=== PATIENT | male | born 1985 | race Caucasian/White ===

== ENCOUNTER 2020-02-28 03:29 | Emergency (ER) | payer SELFPAY ==
[2020-02-28 03:36] VITALS: BP 129/82; PULSE 100; RESP 18; TEMP 36.5; O2SAT 100
== END 2020-02-28 05:34 | disposition left against medical advice (07) ==
PROVIDERS: Emergency Provider Emergency Medicine
DX: H57.12 Ocular pain, left eye (principal)
CPT/HCPCS: 99199

== ENCOUNTER 2021-10-25 03:41 | Emergency (ER) | payer SELFPAY ==
[2021-10-25 03:44] VITALS: PULSE 103; RESP 18; TEMP 36.4; O2SAT 99
--- NOTE | 2021-10-25 03:55 | ECG_ITS ---
Measurements Intervals [place] Rate: 94 P: 80 NM: 129 QRS: 94 QRSD: 89 T: 54 QT: 342 QTc: 430 Interpretive Statements SINUS RHYTHM RIGHT AXIS DEVIATION POSSIBLE LEFT ATRIAL ENLARGEMENT INCOMPLETE RIGHT BUNDLE BRANCH BLOCK BASELINE ARTIFACT- I, II, III, AVR, AVL, V1-V2 BORDERLINE ECG Electronically Signed On 10-25-2021 6:11:32 PERINATAL NURSE by Roberto Zaidi D.O.
--- NOTE | 2021-10-25 04:06 | ED.PSYCH ---
HPI - Psych General Chief Complaint: Psychiatric Symptoms <Feliberto Quijano MD - Last Filed: 10/25/21 07:08> Stated Complaint: SI <Feliberto Quijano MD - Last Filed: 10/25/21 07:08> Time Seen by Provider: 10/25/21 03:50 <Feliberto Quijano MD - Last Filed: 10/25/21 07:08> Source: patient <Feliberto Quijano MD - Last Filed: 10/25/21 07:08> History of Present Illness HPI Narrative: Patient resents with suicidal ideation. Patient reports he been feeling depressed since over the weekend he started to plan to kill himself today he was talking to his friend told he is getting go outside and kill himself. He had a knife with him a rope that maybe he would stab himself or hang himself from a tree. His friend brought him to the ER instead. Patient reports when he was a kid he tried to treat gasoline to kill himself but he did not because he was angry at his parents. He denies any diagnosis of depression anxiety denies any additional attempts at self-harm denies any hospitalizations for psych illness. Patient does report he used meth yesterday. <Feliberto Quijano MD - Last Filed: 10/25/21 07:08> Related Data Home Medications: Home Medications Medication Instructions Recorded Confirmed No Home Medications 02/28/20 02/28/20 <Feliberto Quijano MD - Last Filed: 10/25/21 07:08> Allergies/Adverse Reactions: Allergies Allergy/AdvReac Type Severity Reaction Status Date / Time No Known Allergies Allergy Unverified 02/28/20 03:35 <Feliberto Quijano MD - Last Filed: 10/25/21 07:08> Review of Systems Review of Systems: CONSTITUTIONAL: Denies fever, chills, or sweats. EYES: Denies visual changes, redness, or discharge. ENT: Denies rhinorrhea, congestion, sore throat, or otalgia. CARDIOVASCULAR: Denies chest pain, palpitations, or edema. RESPIRATORY: Denies cough or dyspnea. GASTROINTESTINAL: Denies abdominal pain, nausea, vomiting, or diarrhea. GENITOURINARY: Denies dysuria or hematuria. SKIN: Denies rash or itching. MUSCULOSKELETAL: Denies back pain, joint pain, or myalgia. NEUROLOGIC: Denies headache, numbness, dizziness, or weakness. PSYCHIATRIC: Denies anxiety or depression. <Feliberto Quijano MD - Last Filed: 10/25/21 07:08> All systems reviewed & are unremarkable except as noted in HPI and below <Feliberto Quijano MD - Last Filed: 10/25/21 07:08> PMFSH Past Medical History Medical History: Medical History Patient denies significant medical history <Feliberto Quijano MD - Last Filed: 10/25/21 07:08> Social History Social History: Social History Substance use type: marijuana and methamphetamine Gender identity (if verbalized by the patient): Male <Feliberto Quijano MD - Last Filed: 10/25/21 07:08> Exam Narrative: GENERAL: Well-appearing, well-nourished, and in no acute distress. HEAD: Normocephalic, atraumatic. EYES: PERRLA and EOMI. ENT: Nares clear, no rhinorrhea or epistaxis. Mucous membranes moist. NECK: Supple. No masses. No JVD EXTREMITIES: Normal range of motion. No edema. SKIN: Warm, dry, no rash. NEURO: No focal deficits. Alert and oriented x3. PSYCH: Normal mood and affect. <Feliberto Quijano MD - Last Filed: 10/25/21 07:08> Course Course Emergency Course: Accepted to [facility] by Dr. Barnhart. Pt stable. <Moise Morris MD - Last Filed: 10/25/21 13:07> Reevaluation(s) Reevaluation #1: Patient's labs returned and he is medically stable and appropriate for crisis evaluation <Feliberto Quijano MD - Last Filed: 10/25/21 07:08> Date: 10/25/21 <Feliberto Quijano MD - Last Filed: 10/25/21 07:08> Time: 05:04 <Feliberto Quijano MD - Last Filed: 10/25/21 07:08> Consultations Consultation #1: Patient's been evaluated by crisis and is a voluntary admission. Covid swab obtained for placement crisis wi
[2021-10-25 04:13] LABS: Basophils Absolute Auto 0.1 K/mm3 (0.0-0.1); Basophils Percent Auto 1.4 % (0.2-1.2); Eosinophils Absolute Auto 0.1 K/mm3 (0-0.3); Eosinophils Percent Auto 1.5 % (0-4.4); Hematocrit 43.5 % (42.0-52.0); Hemoglobin 14.7 g/dL (14.0-18.0); Immature Granulocyte Absolute 0.02 K/mm3 (0.00-0.031); Immature Granulocyte Percent A 0.3 % (0-0.5); Lymphocytes Absolute Auto 1.26 K/mm3 (0.9-3.2); Lymphocytes Percent Auto 21.4 % (18.3-44.2); Mean Corpuscular HGB Conc 33.8 g/dl (32-36); Mean Corpuscular Hemoglobin 30.9 pg (26-34); Mean Corpuscular Volume 91.4 fl (80-100); Mean Platelet Volume 10.1 fl (7.4-10.4); Monocytes Absolute Auto 0.6 K/mm3 (0.1-0.6); Monocytes Percent Auto 10.4 % (2.6-8.5); Neutrophils Absolute Auto 3.8 K/mm3 (1.3-6.7); Platelet Count Result 319 k/mm3 (150-375); Red Blood Count 4.76 M/mm3 (4.6-6.20); Red Cell Distribution Width 13.1 % (11.5-14.5); White Blood Count 5.9 K/mm3 (4.5-10.0)
[2021-10-25 04:25] LABS: Alanine Aminotransferase 24 U/L (4-50); Albumin Level 5.1 g/dL (3.5-5.1); Alkaline Phosphatase 78 U/L (38-126); Anion Gap 12 mmol/L (8-16); Aspartate Amino Transferase 35 U/L (17-59); Bilirubin,Total 0.9 mg/dL (0.2-1.3); Blood Urea Nitrogen 24 mg/dL (9-20); Calcium 9.4 mg/dL (8.4-10.2); Carbon Dioxide 23 mmol/L (22-30); Chloride 103 mmol/L (98-107); Estimated CRCL calculation 86 ml/min; Estimated Glomerular Filt Rate > 60; Glucose 127 mg/dL (65-110); Potassium 3.4 mmol/L (3.4-5.0); Sodium 138 mmol/L (137-145)
[2021-10-25 04:26] LABS: Acetaminophen < 10 ug/mL (10-30); Ethanol < 10 mg/dL (<10); Salicylate < 1.0 mg/dL (2-20)
[2021-10-25 04:28] VITALS: BP 143/97
[2021-10-25 04:46] LABS: Add Urine Microscopic? YES; Appearance Urine Clear (Clear); Bacteria Urine Trace /hpf; Bilirubin Urine Negative (Negative); Blood Urine Negative (Negative); Color Urine Amber (Yellow); Glucose Urine UA Negative (Negative); Ketones Urine 1+ mg/dL (Negative); Leukocyte Esterase Ur Negative LEU/UL (Negative); Mucus Urine Heavy /lpf; Nitrate Urine Negative (Negative); Protein Urine 2+ mg/dL (Negative); RBC Urine 0-2 /hpf (0-2); Squamous Epithelial Cell Urine Rare /hpf (Few); WBC Urine 0-3 /hpf
[2021-10-25 04:57] LABS: Barbiturate Screen Urine Negative (Negative); Benzodiazepines Screen Urine Negative (Negative)
[2021-10-25 04:58] LABS: Specific Grav Ur 1.032 (1.001-1.035)
[2021-10-25 04:59] LABS: Cannabinoid Screen Urine Positive (Negative); Cocaine Screen Urine Negative (Negative); Methadone Screen Urine Negative (Negative); Opiate Screen Urine Negative (Negative); Phencyclidine Screen Urine Negative (Negative)
[2021-10-25 05:37] LABS: Amphetamine Screen Urine Positive (Negative)
[2021-10-25] MEDS: hydrOXYzine HCL 25 MG TABLET PO (06:49)
[2021-10-25 06:54] LABS: EDCOVIDSCREEN Negative (Negative)
[2021-10-25] MEDS: LORazepam (*CRX) 0.5 MG TABLET PO (09:02)
--- NOTE | 2021-10-25 11:11 | PC.NURSE ---
[facility] called asking for Ramon HOLLIS to fax pt files to [facility].. File was faxed at [phone]
--- NOTE | 2021-10-25 11:52 | PC.NURSE ---
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 Files were faxed at [phone]. Pt face sheet was also faxed to [facility]
[2021-10-25 13:10] VITALS: BP 135/62; PULSE 98; RESP 16; O2SAT 99
--- NOTE | 2021-10-25 13:30 | PC.NURSE ---
made contact with [employer] [facility] [employer] to transfer pt to [facility]. [id number]
--- NOTE | 2021-10-25 13:50 | PC.NURSE ---
Sandeep has arrived and is aware that pt is going to [facility] [place]
[2021-10-30 22:25] LABS: SARS-CoV-2 RNA PCR Negative
== END 2021-10-25 14:00 ==
PROVIDERS: Emergency Medicine; Emergency Provider Emergency Medicine
DX: F32.9 Major depressive disorder, single episode, unspecified (principal); R45.851 Suicidal ideations; Z20.822 Contact with and (suspected) exposure to COVID-19
CPT/HCPCS: 36415; 80053; 80307; 81001; 84443; 85025; 87426; 93005; 99285; A9270; C9803; U0003; U0005